=== PATIENT | male | born 1980 ===

== ENCOUNTER 2017-01-03 20:14 | Emergency (ER) | payer BC, OTHER ==
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
[2017-01-03] MEDS ORDERED: Ibuprofen TAB* 400 MG PO ONE (21:13)
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
[2017-01-03 22:10] VITALS: BP 122/88
== END 2017-01-03 22:07 | disposition home or self-care (01) ==
LOC: UCCORT 20:14
DX: S00.33XA Contusion of nose, initial encounter (principal); S00.83XA Contusion of other part of head, initial encounter; W50.1XXA Accidental kick by another person, initial encounter; Y93.9 Activity, unspecified; Y92.199 Unspecified place in other specified residential institution as the place of occurrence of the external cause; Y99.0 Civilian activity done for income or pay; F17.210 Nicotine dependence, cigarettes, uncomplicated
CPT/HCPCS: 70160; 99212; A9270-GY; G0463